=== PATIENT | female | born 1970 | race Caucasian/White ===

== ENCOUNTER 2021-02-14 13:13 | Outpatient (CLI) | payer BC | END 2021-02-14 13:14 | disposition home or self-care (01) | LOC: BURRAD 13:13 | PROVIDERS: ATTEND Registered Nurse Community Health | DX: M72.2 Plantar fascial fibromatosis (principal); M20.11 Hallux valgus (acquired), right foot ==

== ENCOUNTER 2022-01-12 10:20 | Outpatient (CLI) | payer BC | END 2022-01-12 10:21 | disposition home or self-care (01) | LOC: BURRAD 10:20 | PROVIDERS: ATTEND Family Medicine | DX: M79.644 Pain in right finger(s) (principal) ==